=== PATIENT | male | born 1975 | race African-American/Black ===

== ENCOUNTER 2021-04-28 20:00 | Emergency (ER) | payer OTHER ==
[2021-04-28 20:15] VITALS: TEMP 99.5; BMI 25.9
[2021-04-28] MEDS ORDERED: KETOROLAC TROMETHAMINE 60 MG/2 ML VIAL IM ONE (20:40)
[2021-04-28] MEDS ORDERED: CYCLOBENZAPRINE HCL 10 MG TABLET (FP) PO ONE (20:40)
[2021-04-28] MEDS ORDERED: KETOROLAC TROMETHAMINE 60 MG/2 ML VIAL ONE (20:42)
[2021-04-28] MEDS ORDERED: CYCLOBENZAPRINE HCL 10 MG TABLET (FP) ONE (20:43)
[2021-04-28 21:32] VITALS: BP 132/99
[2021-04-28] MEDS ORDERED: SODIUM CHLORIDE 1,000 ML IV ONE (21:39)
[2021-04-28 21:47] VITALS: PULSE 117
== END 2021-04-28 22:15 | disposition left against medical advice (07) ==
LOC: FER 20:00
PROC: 3E0233Z Introduction of Anti-inflammatory into Muscle, Percutaneous Approach (ICD-10-PCS; principal; 2021-04-28)
PROC: 3E0337Z Introduction of Electrolytic and Water Balance Substance into Peripheral Vein, Percutaneous Approach (ICD-10-PCS; 2021-04-28)
DX: R81 Glycosuria (principal); M54.31 Sciatica, right side; I10 Essential (primary) hypertension
CPT/HCPCS: 81003; 99284-25

== ENCOUNTER → 2025-03-27 | Day surgery (SDC) | payer OTHER ==
[2025-03-21 12:07] VITALS: BMI 28.8
[2025-03-27 09:40] VITALS: BP 146/91; PULSE 131; RESP 18; TEMP 98.2
== END | disposition home or self-care (01) ==
LOC: JASU-ENDO 06:35
PROVIDERS: ATTEND Internal Medicine Gastroenterology
DX: Z53.8 Procedure and treatment not carried out for other reasons (principal)
CPT/HCPCS: 82962